=== PATIENT | male | born 1955 | race Caucasian/White ===

== ENCOUNTER 2024-04-29 17:02 | Emergency (ER) | payer OTHER ==
[~2024-04-29] VITALS: Ht 167.6 cm; Wt 90.0 kg
[2024-04-29 17:09] VITALS: BP 120/73; PULSE 120; RESP 16; TEMP 36.7; O2SAT 98
== END 2024-04-29 18:02 | disposition left against medical advice (07) ==
LOC: ER 17:59
DX: F10.129 Alcohol abuse with intoxication, unspecified (principal); Z53.21 Procedure and treatment not carried out due to patient leaving prior to being seen by health care provider; Y90.9 Presence of alcohol in blood, level not specified